=== PATIENT | male | born 1945 | race Caucasian/White ===

== ENCOUNTER 2016-04-14 01:01 | Emergency (ER) | payer MEDICARE, BC ==
[~2016-04-14 01:01] MED LIST: ACCUPRIL40 MG PO; ACCUPRIL5 M1 PO; ACETAMINOPHEN325 M1 PO; ALDACTAZIDE 251 EAC1 PO; ANTACID SUSPEN PO; ANTIVERT12.5 MG PO; ANTIVERT25 MG PO; ASPIR 8181 M1 PO; ASPIR 8181 MG PO; ATORVASTATIN CA40 MG PO; AUGMENTIN875 MG PO; BABY ASPIRIN81 MG PO; BISACODYL10 MG/SU RC; CELEXA20 MG PO; CIPRO500 MG; CIPRO500 MG PO; CLONAZEPAM1 MG PO; COUMADIN5 M2 PO; COUMADIN5 MG PO; CYCLOBENZAPRINE10 M1 PO; DEPAKOTE ER250 MG PO; DEPAKOTE250 MG PO; DIAZEPAM10 M1 PO; DIVALPROEX SOD250 MG PO; DIVALPROEX SOD500 M1 PO; DIVALPROEX SOD500 M5 PO; EXTRA STRENGTH500 MG PO; FLEXERIL10 MG; FLEXERIL10 MG PO; FLOMAX0.4 M1 PO; FLOMAX0.4 MG; FLOMAX0.4 MG PO; FLONASE16 GM NS; GABAPENTIN300 M1 PO; HYDROCODON-ACE1 EAC7 PO; HYDROQUINONE; IRON SUPPLEMEN325 MG PO; IRON325 M1 PO; KEPPRA500 MG; KLONOPIN1 MG PO; KLOR-CON 1010 MEQ; KLOR-CON 1010 MEQ PO; LASIX20 M1 PO; LASIX40 MG; LASIX80 M1 PO; LATANOPROST2.5 ML BOTH EYES; LISINOPRIL-HCT1 EAC1 PO; LOPRESSOR50 MG PO; LORTAB 5-325 M1 EAC1 PO; LYRICA100 MG; LYRICA75 MG PO; MACROBID100 MG/CAP PO; MECLIZINE HCL25 M3 PO; METOPROLOL SUC200 MG PO; METOPROLOL SUCC50 M1 PO; MIRALAX17 GM PO; MONTELUKAST SOD10 M1 PO; MULTIVITAMIN1 TAB PO; MULTIVITAMINS1 EAC7 PO; NAPROSYN250 MG PO; NAPROSYN375 MG PO; NIFEDIPINE ER60 MG; NIFEDIPINE ER90 M1 PO; NITROQUICK0.4 MG SL; NORTRIPTYLIHNE25 MG PO; NORVASC2.5 MG PO; NORVASC5 MG PO; OMNICEF300 MG PO; ONDANSETRON ODT4 M1 PO; PEPCID AC20 M1 PO; POTASSIUM CHLO10 ME2 PO; PRAVACHOL80 MG PO; QUINAPRIL HCL40 MG; QUINAPRIL40 MG PO; REPREXAIN PO; REQUIP4 M1 PO; RESTORIL7.5 MG PO; ROPINIROLE HCL1 MG PO; SENOKOT-S TABLE1 TAB PO; SEROQUEL100 MG PO; SEROQUEL200 M1 PO; SEROQUEL300 M1 PO; SEROQUEL400 M1 PO; SINGULAIR10 M1 PO; SPIRONOLACTONE1 TAB PO; TAMSULOSIN HCL0.4 MG PO; THERAGRAN-M1 TAB PO; TOPROL XL100 MG; TOPROL XL200 MG; TRAMADOL HCL50 M2 PO; TRANDATE300 M1 PO; TRAVATAN Z5 M1 OP; TRAVATAN Z5 ML EACH EYE; TRAVATAN5 ML BOTH EYES; TRAZODONE HCL100 MG PO; TRICOR145 M1 PO; TRICOR145 MG; TYLENOL500 MG PO; ULTRAM50 MG PO; VALIUM5 M1 PO; VALIUM5 MG PO; VERAPAMIL ER180 MG PO; VYTORIN 10/40 T1 TAB; VYTORIN 10/401 TAB PO; WELLBUTRIN PO; WELLBUTRIN XL300 MG PO; WELLBUTRIN100 MG PO; XANAX0.5 MG PO; ZESTORETIC 20-1 EAC3 PO; ZOFRAN4 M1 PO; ZOFRAN4 MG PO; [UNRECOGNIZED DRUG - OTHER]
[2016-04-14] MEDS ORDERED: CYCLOBENZAPRINE10 M1 PO (03:43)
[2016-11-03] MEDS ORDERED: NEURONTIN300 M1 PO (10:20)
[2016-11-03] MEDS ORDERED: SEROQUEL300 M1 PO (10:20)
[2016-11-03] MEDS ORDERED: DEPAKOTE ER500 M1 PO (10:20)
== END 2016-04-14 04:45 ==
LOC: EDMED 01:01
DX: I12.9 Hypertensive chronic kidney disease with stage 1 through stage 4 chronic kidney disease, or unspecified chronic kidney disease (principal); G43.909 Migraine, unspecified, not intractable, without status migrainosus; G25.81 Restless legs syndrome; I25.10 Atherosclerotic heart disease of native coronary artery without angina pectoris; N18.3 Chronic kidney disease, stage 3 (moderate); F31.9 Bipolar disorder, unspecified; F41.9 Anxiety disorder, unspecified; N40.0 Benign prostatic hyperplasia without lower urinary tract symptoms; R11.2 Nausea with vomiting, unspecified; Z87.442 Personal history of urinary calculi; Z87.891 Personal history of nicotine dependence; Z79.01 Long term (current) use of anticoagulants; Z79.82 Long term (current) use of aspirin; Z79.899 Other long term (current) drug therapy
CPT/HCPCS: J1200; J1885; J2270; J2765; J3360; J7030